=== PATIENT | female | born 1995 | race Caucasian/White ===

== ENCOUNTER 2016-10-07 18:47 | Emergency (ER) | payer OTHER ==
[~2016-10-07] VITALS: Ht 157.5 cm; Wt 57.9 kg
[2016-10-07 18:53] VITALS: TEMP 37.2; Ht 157.5 cm; Wt 57.9 kg
[2016-10-07] MEDS ORDERED: BCPILLS PO (19:03)
[2016-10-07] MEDS ORDERED: RABIES VACCINE (IMOVAX) HUMAN DIPL CELL 2.5 INTER.UNIT/ML SYR IM. ONE (19:15)
--- NOTE | 2016-10-07 19:30 | EMERGENCY ROOM VISIT NOTE ---
ED Visit Note First contact with patient: 18:58 CHIEF COMPLAINT: Rabies vaccine, and painful, swollen right foot. HISTORY OF PRESENT ILLNESS: This 20-year-old female patient presents to the emergency department 1 day after being bitten by a rabid raccoon. Patient works at [employer], and was bitten yesterday by the rectum. They did euthanize the raccoon, and sent it to [facility] laboratory for testing. The lab did confirm that the raccoon had rabies, so the patient presents today for her initial rabies vaccine. Patient did have the 3 pre-exposure vaccines to work in her job. She states she believes that she needs only to vaccinations , and states she does not need immunoglobulin. Patient has a very small puncture wound on the left hand, medial aspect. She states she did clean the wound is very well with water and antibacterial soap. The patient denies redness, drainage, discharge, swelling, or other associated symptoms with the wound at this time. The patient states the wound already appears to be healing properly. Patient also reports right foot pain, on the dorsal aspect just proximal to the fourth digit. She states she believes she injured the toe while drunk, however has no idea how the injury may have occurred. She states this injury occurred approximately 2 or 3 weeks ago. Patient reports some mild swelling, and states pain is 6/10 while walking. Pain improves with ibuprofen, which she has been taking 600 mg approximately every 6 hours. Patient has been wearing running shoes to work which she states do have good support, however she states she does worsen the discomfort, so while at home she has been wearing sandals. She states ice helps. Patient used heat last night, which she also states helped with the symptoms. REVIEW OF SYSTEMS: A 6 system review of systems was completed with positives and pertinent negatives listed in the HPI. ALLERGIES: None MEDICATIONS: Oral control PMH: None. SOCIAL HISTORY: Patient lives locally as a student. She works at [employer]. Patient denies tobacco or drug use. She does report occasional social alcohol use.. PHYSICAL EXAM: Vital Signs: Reviewed Nurse's notes, vital signs stable. GENERAL : 20-year-old female, in no acute distress, well-developed, well-nourished. HEAD: Atraumatic, without temporal or scalp tenderness. EYES: PERRLA, EOMI, no discharge or injection. SKIN: Small puncture wound on the medial aspect of left hand. Capillary refill less than 2 seconds. Some minimal bruising noted to dorsal aspect of right foot, proximal to the fourth and fifth digits. NEUROLOGICAL: Alert and oriented to person place and time. Normal sensation to light and sharp touch. MUSCULOSKELETAL: Motor functions grossly intact of all extremities. Full range of motion. There is moderate tenderness to palpation of the right foot, proximal to the fourth digit. Bilateral foot and toe strength 5/5. All toes neurovascularly intact. EMERGENCY DEPARTMENT COURSE: I examined the patient. X-ray of right foot was ordered. Results were reviewed by myself and radiologist and are as follows: FINDINGS: Tarsometatarsal joints are intact. There is lucency with cortical irregularity of the distal shaft of the right fourth metatarsal with suspected extension into the metatarsal head. No additional fractures are identified. IMPRESSION: Minimally displaced fracture of the distal shaft of the right fourth metatarsal which is likely acute to subacute. The patient was given Imovax 1ml IM. The patient was placed in a postop shoe due to radiographical evidence of metatarsal fracture. The patient was observed for 20 minutes with no reaction. The patient was discharged home in stable condition. DIAGNOSIS: Rabies prophylaxis, minimally displaced fracture of distal shaft of right fourth metatarsal DIFFERENTIAL DIAGNOSIS: Acute cellulitis, foot contusion, phalangeal fracture, and others DISCHARGE INSTRUCTIONS: Today is day 0. Return to the ER on day 3 for subsequent vaccination. Return sooner or follow up with your family doctor for signs of infection (increased redness, discharge, fever) or for complications with the vaccine series. Wear the postop shoe as instructed, any time you will be walking around or bearing weight on the foot. For pain control, you can use the following [id number] medicines (if >12 yo): - Regular strength (325mg/tab) Tylenol (acetaminophen) 2 tabs every 4-6 hours as needed. Do not exceed 12 tablets in a 24 hour period. Avoid taking more than 4 grams (4000 mg) of Tylenol per day. This includes any other sources of acetaminophen you may take on a regular basis. - Regular strength (200 mg/tab) Advil (ibuprofen) 1-2 tabs every 4-6 hours as needed. Do not exceed a dose of 3200 mg per day. Follow-up in 2-3 days with orthopedics regarding distal metatarsal fracture. Current/Historical Medications Scheduled Control Pills ( Control Pills), 1 TAB PO DAILY Allergies Coded Allergies: No Known Allergies (Unverified , 10/07/16) Vital Signs Date Time Temp Pulse Resp B/P (MAP) Pulse Ox O2 Delivery O2 Flow Rate FiO2 10/07/16 18:53 37.2 96 16 117/74 98 Room Air Medications Administered Medications (Trade) Dose Ordered Sig/Dannielle Route Start Time Stop Time Status Last Admin Dose Admin Rabies Vaccine Human Diploid Cell (Imovax Rabies) 2.5 interunit ONCE ONCE IM. 10/07/16 19:15 10/07/16 19:16 DC 10/07/16 19:39 2.5 INTERUNIT Departure Information Impression Primary Impression: Rabies exposure Additional Impression: Fracture of metatarsal bone of right foot Dispostion Home / Self-Care Condition GOOD Referrals No Doctor, Assigned (PCP) Bill Murguia M.D. Patient Instructions ED [facility], [facility], Rabies Additional Instructions Today is day 0. Return to the ER on day 3 for subsequent vaccination. Return sooner or follow up with your family doctor for signs of infection (increased redness, discharge, fever) or for complications with the vaccine series. Wear the postop shoe as instructed, any time you will be walking around or bearing weight on the foot. For pain control, you can use the following [id number] medicines (if >12 yo): - Regular strength (325mg/tab) Tylenol (acetaminophen) 2 tabs every 4-6 hours as needed. Do not exceed 12 tablets in a 24 hour period. Avoid taking more than 4 grams (4000 mg) of Tylenol per day. This includes any other sources of acetaminophen you may take on a regular basis. - Regular strength (200 mg/tab) Advil (ibuprofen) 1-2 tabs every 4-6 hours as needed. Do not exceed a dose of 3200 mg per day. Follow-up in 2-3 days with orthopedics regarding distal metatarsal fracture. Problem Qualifiers Additional Impression: Fracture of metatarsal bone of right foot Encounter type: initial encounter Metatarsal bone: fourth Fracture type: closed Fracture alignment: displaced Qualified Codes: S92.341A - Displaced fracture of fourth metatarsal bone, right foot, initial encounter for closed fracture
--- NOTE | 2016-10-07 19:35 | DIAGNOSTIC IMAGING REPORT ---
RIGHT FOOT MIN 3 VIEWS ROUTINE CLINICAL HISTORY: Right foot pain. No known injury. COMPARISON: None FINDINGS: Tarsometatarsal joints are intact. There is lucency with cortical irregularity of the distal shaft of the right fourth metatarsal with suspected extension into the metatarsal head. No additional fractures are identified. IMPRESSION: Minimally displaced fracture of the distal shaft of the right fourth metatarsal which is likely acute to subacute. Electronically signed by: Francis Rousseau M.D. 10/07/2016 7:33 PM Dictated Date/Time: 10/07/2016 7:31 PM
[2016-10-07 19:57] VITALS: BP 122/76; PULSE 68; O2SAT 98
== END 2016-10-07 20:00 | disposition home or self-care (01) ==
LOC: C.EDB 18:50 → C.EDD 20:00
DX: Z20.3 Contact with and (suspected) exposure to rabies (principal); S92.341A Displaced fracture of fourth metatarsal bone, right foot, initial encounter for closed fracture; X58.XXXA Exposure to other specified factors, initial encounter; Z23 Encounter for immunization

== ENCOUNTER 2016-10-10 12:19 | Emergency (ER) | payer OTHER ==
[~2016-10-10] VITALS: Ht 157.5 cm; Wt 57.0 kg
[~2016-10-10 12:19] MED LIST: BCPILLS PO
[2016-10-10 12:25] VITALS: TEMP 37; Ht 157.5 cm; Wt 57.0 kg
[2016-10-10] MEDS ORDERED: RABIES VACCINE (IMOVAX) HUMAN DIPL CELL 2.5 INTER.UNIT/ML SYR IM. ONE (13:00)
[2016-10-10 14:03] VITALS: BP 112/67; PULSE 86; O2SAT 99
--- NOTE | 2016-10-10 15:13 | EMERGENCY ROOM VISIT NOTE ---
History First contact with patient: 12:59 Chief Complaint: RABIES VACCINE REPEAT VISIT Stated Complaint: REPEAT RABIES VACCINATION History of Present Illness The patient is a 20 year old female who presents to the Emergency Room for her second and final Imovax injection. The patient was bitten by a baby raccoon tested positive for rabies. The patient has already received the preexposure rabies vaccination series as part of her work. The patient denies any redness to her left hand from the bite. She denies any adverse reactions to her Imovax injection. Review of Systems 6 system review was performed and was negative except for pertinent positives and negatives as indicated in history of present illness Past Medical/Surgical History Medical Problems: (1) No significant past medical history Surgical Problems: (1) No history of previous surgery Family History Unremarkable Social History Smoking Status: Former Smoker Alcohol Use: occasionally, heavy Marital Status: single Occupation Status: employed Current/Historical Medications Scheduled Control Pills ( Control Pills), 1 TAB PO DAILY Allergies Coded Allergies: No Known Allergies (Unverified , 10/07/16) Physical Exam Vital Signs Date Time Temp Pulse Resp B/P (MAP) Pulse Ox O2 Delivery O2 Flow Rate FiO2 10/10/16 14:03 86 16 112/67 99 10/10/16 12:25 37.0 94 16 116/82 99 Room Air Pain Rating (0-10): 0 Physical Exam CONSTITUTIONAL: Healthy and well nourished. Alert and oriented X 3 with positive affect. HEENT: Normocephalic, atraumatic. Pupils equal, round and reactive. NECK: Full active range of motion without discomfort. RESPIRATORY: Clear to auscultation bilaterally with no wheezing, crackles, rhonchi or stridor. CARDIOVASCULAR: Regular rate and rhythm with no murmurs, rubs or gallops. MUSCULOSKELETAL: Examination of the left hand does not show any erythema or significant soft tissue edema at the bite. She has full flexion and extension of the fingers without discomfort. Capillary refill is less than 2 seconds. INTEGUMENTARY: No rash or other significant dermatologic conditions noted. NEUROLOGIC: Left hand and fingers are sensory intact. Medical Decision & Procedures Medications Administered Medications (Trade) Dose Ordered Sig/Dannielle Route Start Time Stop Time Status Last Admin Dose Admin Rabies Vaccine Human Diploid Cell (Imovax Rabies) 2.5 interunit ONCE ONCE IM. 7/2/17 13:00 10/10/16 13:01 DC 10/10/16 13:05 2.5 INTERUNIT ED Course Patient history and physical exam were performed. Nurse's notes were reviewed. Vital signs were reviewed and were normal. The patient received Imovax IM without adverse reaction. The patient was instructed to continue watching for any signs of developing infection of the hand. The patient was happy with plan care, and voiced understanding of all discharge instructions. Medical Decision Impression Primary Impression: Need for prophylactic vaccination against rabies Additional Impression: Animal bite of left hand Departure Information Dispostion Home / Self-Care Condition GOOD Forms HOME CARE DOCUMENTATION FORM, IMPORTANT VISIT INFORMATION Patient Instructions [facility] Additional Instructions Watch for any signs of developing infection of the hand. Return to the emergency department for any other concerns. Problem Qualifiers Additional Impression: Animal bite of left hand Encounter type: subsequent encounter Qualified Codes: S61.452D - Open bite of left hand, subsequent encounter
== END 2016-10-10 14:05 | disposition home or self-care (01) ==
LOC: C.EDB 12:19 → C.EDD 14:05
DX: Z23 Encounter for immunization (principal); Z20.3 Contact with and (suspected) exposure to rabies